=== PATIENT | male | born 1995 | race Caucasian/White ===

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

== ENCOUNTER → 2017-01-13 | Outpatient (CLI) | payer OTHER ==
[~2017-01-13] MED LIST: NAPR500T3 PO; PROHANCE 279.3MG/ML 15ML VIAL (A9576) As Ordered ONE; TYLE325T5 PO
--- NOTE | 2017-01-13 13:58 | REP ---
MRI IACs WITHOUT AND WITH CONTRAST: HISTORY: Left hearing loss. CONTRAST: ProHance 16 mL. Scattered punctate areas of increased signal intensity on T2-weighted images are present in the subcortical white matter. There is no intraparenchymal hemorrhage, infarct, mass or midline shift. There is no abnormal enhancement. The ventricular system is normal in appearance. There is no extracerebral collection. There is no cerebellopontine angle mass. The inner ear structures are normal in appearance. The mastoid air cells are clear. Minimal mucosal thickening is present in the right maxillary sinus. IMPRESSION: There are scattered punctate areas of increased signal intensity in the subcortical white matter. This is a nonspecific finding. Signed by Sav Denny MD 01/13/2017 01:59 P
== END ==
LOC: M RAD 10:58
PROVIDERS: ATTEND Otolaryngology
DX: H90.42 Sensorineural hearing loss, unilateral, left ear, with unrestricted hearing on the contralateral side (principal)

== ENCOUNTER 2017-11-10 03:21 | Emergency (ER) | payer OTHER | END 2017-11-10 06:13 | disposition left against medical advice (07) | LOC: M ED 03:21 | DX: R50.9 Fever, unspecified (principal); Z53.21 Procedure and treatment not carried out due to patient leaving prior to being seen by health care provider ==